=== PATIENT | female | born 1985 | race Caucasian/White ===

== ENCOUNTER 2018-12-01 02:07 | Emergency (ER) | payer SELFPAY ==
[~2018-12-01] VITALS: Ht 149.9 cm; Wt 45.4 kg
[~2018-12-01 02:07] MED LIST: AMOX1TAB10 PO; HYDR-4011 PO; IBUP-1542 PO
[2018-12-01 02:09] VITALS: Ht 149.9 cm; Wt 45.4 kg
[2018-12-01] MEDS ORDERED: LIDOCAINE 1% (MPF) 5 ML VIAL INFIL ONE (03:00)
[2018-12-01] MEDS ORDERED: DIPHTH/TET/ACEL PERTUSS (ADULT) 0.5 ML VIAL IM* ONE (03:00)
[2018-12-01] MEDS ORDERED: CEFAZOLIN 1 GM INJ IM ONE (04:30)
[2018-12-01] MEDS ORDERED: HYDROCODONE/APAP (5/325) TAB PO ONE (07:30)
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
[2018-12-01 07:48] VITALS: BP 117/57; PULSE 95; RESP 18
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
== END 2018-12-01 07:51 | disposition home or self-care (01) ==
LOC: FTE 02:07
DX: S62.663B Nondisplaced fracture of distal phalanx of left middle finger, initial encounter for open fracture (principal); W50.3XXA Accidental bite by another person, initial encounter; Y92.9 Unspecified place or not applicable; Z23 Encounter for immunization
CPT/HCPCS: 12001; 73140; 81025; 90715; J0690; 90471; 96372